=== PATIENT | male | born 1980 | race Caucasian/White ===

== ENCOUNTER → 2017-01-28 | Outpatient (CLI) | payer MEDICAID ==
[2017-01-28 15:49] LABS: HEMOGLOBIN 14.1 g/dL (14.1-18.0); LYMPH # 1.8 K/mm3 (0.7-4.5); LYMPH % 37.2 % (10-50)
[2017-01-28 16:58] LABS: BUN 7 mg/dL (7-18)
[2017-01-28 16:59] LABS: GFR (ESTIMATED) 126 ML/MIN (>60)
[2017-01-30 08:47] LABS: RA Latex Turbid. 13.4 IU/mL (0.0-13.9)
[2017-01-30 10:41] LABS: HBsAg Screen Positive (Negative); Hep A Ab, IgM Negative (Negative); Hep B Core Ab, IgM Indeterminate (Negative)
[2017-01-30 18:40] LABS: Antinuclear Antibodies, IFA Negative (.); Hep C Virus Ab 0.1 (0.0-0.9)
== END ==
LOC: LAB 15:12
PROVIDERS: Emergency Medicine
DX: R53.83 Other fatigue (principal)

== ENCOUNTER → 2017-05-30 | Outpatient (CLI) | payer MEDICARE, MEDICAID | LOC: RT 13:59 | DX: R06.02 Shortness of breath (principal) ==